=== PATIENT | male | born 2000 | race Hispanic/Latino ===

== ENCOUNTER 2022-06-14 09:51 | Inpatient (IN) | payer OTHER ==
[~2022-06-14] VITALS: Ht 188 cm; Wt 104.3 kg
[2022-06-14 10:14] LABS: BASOPHILS % (AUTO) 0.2 % (0.0-5.0); EOSINOPHILS % (AUTO) 0.1 % (0.0-8.0); HEMATOCRIT 48.9 % (42-54); LYMPHOCYTES % (AUTO) 7.1 % (21.0-51.0); MEAN CORPUSCULAR HEMOGLOBIN 29.6 pg (27.0-33.0); MEAN CORPUSCULAR HGB CONC 35.4 g/dL (32.0-36.0); MEAN CORPUSCULAR VOLUME 83.6 fL (80-100); NEUTROPHILS % (AUTO) 88.1 % (40.0-77.0); PLATELET COUNT (AUTO) 288 K/uL (130-400); RED BLOOD CELL COUNT(AUTO) 5.85 MIL/uL (4.50-6.20); RED CELL DISTRIBUTION WIDTH 12.2 % (11.0-15.5)
[2022-06-14 10:20] LABS: APPEARANCE,URINE CLOUDY (CLEAR); BILIRUBIN,URINE NEGATIVE (NEGATIVE); COLOR,URINE YELLOW (YELLOW); GLUCOSE, URINE (UA) NEGATIVE (NEGATIVE); KETONES,URINE >=80 mg/dL (NEGATIVE); LEUKOCYTE ESTERASE ,URINE NEGATIVE Leu/uL (NEGATIVE); NITRATE,URINE NEGATIVE (NEGATIVE); OCCULT BLOOD,URINE NEGATIVE (NEGATIVE); PROTEIN,URINE 50 mg/dL (NEGATIVE)
[2022-06-14 10:22] LABS: AMPHET/METH SCREEN,URINE NEGATIVE (NEGATIVE); BARBITURATE SCREEN, URINE NEGATIVE (NEGATIVE); BENZODIAZEPINES SCREEN,URINE NEGATIVE (NEGATIVE); CANNABINOID SCREEN,URINE POSITIVE (NEGATIVE); COCAINE SCREEN,URINE NEGATIVE (NEGATIVE); OPIATE SCREEN,URINE NEGATIVE (NEGATIVE); PHENCYCLIDINE SCREEN,URINE NEGATIVE (NEGATIVE); POTASSIUM 3.9 mmol/L (3.5-5.1)
[2022-06-14 10:27] LABS: ALBUMIN 5.1 g/dL (3.5-5.0)
[2022-06-14] MEDS ORDERED: FAMOTIDINE 20MG VIAL IV ONE (10:30)
[2022-06-14] MEDS ORDERED: ONDANSETRON 4MG INJ IVP ONE (10:30)
[2022-06-14] MEDS ORDERED: 0.9%NACL 1000ML 1,000 ML IV ONE (10:30)
[2022-06-14] MEDS ORDERED: MORPHINE 4 MG SYG IVP ONE (10:30)
[2022-06-14] MEDS ORDERED: IOHEXOL 350 MG/ML 100ML INFUS..BTL IV ONE (10:48)
[2022-06-14 11:19] LABS: BACTERIA,URINE Moderate /HPF (None Seen)
[2022-06-14 11:20] LABS: AMORPHOUS SEDIMENT,UR Few /LPF (None Seen)
[2022-06-14 11:21] LABS: RBC,URINE 0-1 /HPF (0-1); SQUAMOUS EPITHELIAL CELL,UR 0-2 /HPF (0-2); WBC,URINE 0-1 /HPF (0-1)
[2022-06-14] MEDS ORDERED: ZOSYN 3.375GM +NS 50ML IVPB ONE (13:00)
[2022-06-14] MEDS ORDERED: ONDANSETRON 4MG INJ IV PRN (16:30)
[2022-06-14] MEDS ORDERED: MORPHINE 2 MG SYG IVP PRN (16:30)
[2022-06-14] MEDS ORDERED: ACETAMINOPHEN 325 MG TAB PO PRN (16:30)
[2022-06-14 16:45] LABS: HEMATOCRIT 45.4 % (42-54); MEAN CORPUSCULAR HEMOGLOBIN 29.2 pg (27.0-33.0); MEAN CORPUSCULAR HGB CONC 34.6 g/dL (32.0-36.0); MEAN CORPUSCULAR VOLUME 84.5 fL (80-100); RED BLOOD CELL COUNT(AUTO) 5.37 MIL/uL (4.50-6.20); RED CELL DISTRIBUTION WIDTH 12.4 % (11.0-15.5); WHITE BLOOD COUNT (AUTO) 11.8 K/uL (4.8-10.8)
[2022-06-14] MEDS: LACTATED RINGERS 1000ML 1,000 ML IV SCH (17:01)
[2022-06-14 18:00] VITALS: BP 121/60
[2022-06-14] MEDS: ZOSYN 3.375GM+NS 50ML 50 ML IVPB SCH (20:34)
[2022-06-14] MEDS: FAMOTIDINE 20MG VIAL IV SCH (20:34)
[2022-06-14 23:17] VITALS: BP 120/72
[2022-06-15] VITALS (27 sets, daily range): BP systolic 107–153; BP diastolic 54–84
[2022-06-15] MEDS: LACTATED RINGERS 1000ML 1,000 ML IV SCH ×3 (03:08→22:17)
[2022-06-15] MEDS: ZOSYN 3.375GM+NS 50ML 50 ML IVPB SCH ×3 (05:54→19:56)
[2022-06-15] MEDS: FAMOTIDINE 20MG VIAL IV SCH ×2 (09:27→19:56)
[2022-06-15] MEDS ORDERED: ACETAMINOPHEN WITH CODEINE 1 TAB TAB PO PRN (10:00)
[2022-06-15] MEDS ORDERED: SIMETHICONE 80 MG TAB.CHEW PO PRN (10:00)
[2022-06-15] MEDS ORDERED: SUCCINYLCHOLINE CHLORIDE 20 MG/ML 10 ML VIAL ONE (11:05)
[2022-06-15] MEDS ORDERED: LIDOCAINE PF 100MG/5ML (2%) SYRINGE 5ML ONE ×2 (11:05→11:08)
[2022-06-15] MEDS ORDERED: ONDANSETRON 4MG INJ ONE (11:06)
[2022-06-15] MEDS ORDERED: MIDAZOLAM HCL 1 MG/ML 2ML VIAL ONE (11:06)
[2022-06-15] MEDS ORDERED: GLYCOPYRROLATE 1 MG/5 ML SYRINGE ONE (11:06)
[2022-06-15] MEDS ORDERED: PROPOFOL 10 MG/ML 20ML VIAL IV ONE (11:06)
[2022-06-15] MEDS ORDERED: DEXAMETHASONE SOD PHOSPHATE 10MG/ML 1ML VIAL ONE (11:06)
[2022-06-15] MEDS ORDERED: ROCURONIUM 10MG/1ML SYR 10 MG/ML ML ONE (11:06)
[2022-06-15] MEDS ORDERED: NEOSTIGMINE 5MG/5ML SYR IV ONE (11:06)
[2022-06-15] MEDS ORDERED: FENTANYL CITRATE PF 50 MCG/1 ML 2ML VIAL ONE ×3 (11:07→13:27)
[2022-06-15] MEDS ORDERED: BUPIVACAINE/PF 0.5% 30ML VIAL ONE (13:14)
[2022-06-15] MEDS ORDERED: BUPIVACAINE/PF 0.25% 30ML VIAL IJ ONE (13:16)
[2022-06-16] VITALS: BP 108/59
[2022-06-16 04:00] VITALS: BP 127/66
[2022-06-16] MEDS: ZOSYN 3.375GM+NS 50ML 50 ML IVPB SCH ×2 (04:32→13:59)
[2022-06-16 05:24] LABS: BASOPHILS % (AUTO) 0.6 % (0.0-5.0); EOSINOPHILS % (AUTO) 1.6 % (0.0-8.0); HEMATOCRIT 42.2 % (42-54); LYMPHOCYTES % (AUTO) 28.1 % (21.0-51.0); MEAN CORPUSCULAR HEMOGLOBIN 29.6 pg (27.0-33.0); MEAN CORPUSCULAR HGB CONC 33.2 g/dL (32.0-36.0); MEAN CORPUSCULAR VOLUME 89.2 fL (80-100); MONOCYTES % (AUTO) 8.6 % (3.0-13.0); NEUTROPHILS % (AUTO) 60.5 % (40.0-77.0); PLATELET COUNT (AUTO) 209 K/uL (130-400); RED BLOOD CELL COUNT(AUTO) 4.73 MIL/uL (4.50-6.20); RED CELL DISTRIBUTION WIDTH 12.4 % (11.0-15.5); WHITE BLOOD COUNT (AUTO) 6.8 K/uL (4.8-10.8)
[2022-06-16 05:35] LABS: ALBUMIN 3.7 g/dL (3.5-5.0); CREATININE 1.2 mg/dL (0.5-1.5); MAGNESIUM 1.9 mg/dL (1.80-2.40); POTASSIUM 3.7 mmol/L (3.5-5.1); TOTAL PROTEIN, SERUM 7.1 g/dL (6.0-8.3)
[2022-06-16 07:30] VITALS: BP 110/43
[2022-06-16] MEDS: FAMOTIDINE 20MG VIAL IV SCH (07:52)
[2022-06-16 11:30] VITALS: BP 105/54
== END 2022-06-16 16:50 | disposition home or self-care (01) | DRG 343 ==
LOC: EDH 09:51 → EDHIP 16:06 → EDBD 16:06 → 3CH 18:04
PROVIDERS: ADMIT Internal Medicine; ATTEND Internal Medicine
PROC: 0DTJ4ZZ Resection of Appendix, Percutaneous Endoscopic Approach (ICD-10-PCS; principal; 2022-06-14)
DX: K35.80 Unspecified acute appendicitis (principal); Z20.822 Contact with and (suspected) exposure to COVID-19
CPT/HCPCS: 36415; 74177; 80053; 80305; 81001; 83690; 83735; 85025; 85027; 87088; 87635; G0378; J0330; J1100; J2001; J2250; J2270; J2405; J2543; J2704; J2710; J3010; J3490; J7030; J7120; Q9967